=== PATIENT | male | born 1950 ===

== ENCOUNTER 2016-10-05 10:38 | Inpatient (IN) | payer BC, OTHER ==
[2016-10-05 10:43] VITALS: BMI 24.7
[2016-10-05 11:03] LABS: BASO # 0.04 K/mm3 (0.0-2.0); BASO % 0.4 % (0.0-3.0); EOS # 0.1 (0.0-0.7); GRAN # 4.58 (1.4-6.5); GRAN % 43.6 % (50.0-68.0); HEMOGLOBIN 15.5 gm/dL (14.0-18.0); LYMPH % 47.3 % (22.0-35.0); MEAN CELL VOLUME 84.8 fL (80.0-105.0); MEAN CORPUSCULAR HEMOGLOBIN 29.1 pg (25.0-35.0); MEAN CORPUSCULAR HGB CONC 34.4 g/dl (31.0-37.0); MEAN PLATELET VOLUME 10.7 fl (7.0-11.0); MONO # 0.8 (0.1-0.6); MONO % 7.7 % (1.0-6.0); PLATELET COUNT 152 10^3/uL (120.0-450.0); RBC 5.32 10^6/uL (3.5-6.1); RED CELL DISTRIBUTION WIDTH 14.4 % (11.5-14.5); WHITE BLOOD COUNT 10.5 10^3/ul (4.5-11.0)
--- NOTE | 2016-10-05 11:08 | CT ---
PROCEDURE: CT HEAD WITHOUT CONTRAST. HISTORY: Code Stroke. Altered mental status new line Relevant medical history: Seizure disorder. COMPARISON: None available. TECHNIQUE: Axial computed tomography images were obtained through the head/brain without intravenous contrast. Radiation dose: Total exam DLP = 774.23 mGy-cm. This CT exam was performed using one or more of the following dose reduction techniques: Automated exposure control, adjustment of the mA and/or kV according to patient size, and/or use of iterative reconstruction technique. FINDINGS: HEMORRHAGE: No intracranial hemorrhage. BRAIN: No mass effect or edema. Cortical atrophy, periventricular small vessel disease VENTRICLES: Unremarkable. No hydrocephalus. CALVARIUM: Unremarkable. PARANASAL SINUSES: Unremarkable as visualized. No significant inflammatory changes. MASTOID AIR CELLS: Unremarkable as visualized. No inflammatory changes. OTHER FINDINGS: None. IMPRESSION: No acute intracranial abnormalities. No significant findings to account for the clinical presentation. Code stroke protocol: Study completed 11:49. Radiologist notified 11:02. Results conveyed verbally at 11:05. Interpretation finalized and available for review 11:07. October 05, 2016.
[2016-10-05 11:09] LABS: INR 1.09 (0.93-1.08); PARTIAL THROMBOPLASTIN TIME 23.6 Seconds (23.7-30.8); PROTHROMBIN TIME 11.8 Seconds (9.9-11.8)
--- NOTE | 2016-10-05 11:20 | RAD ---
PROCEDURE: CHEST RADIOGRAPH, 1 VIEW HISTORY: CVA alert COMPARISON: None available. FINDINGS: LUNGS: Clear. PLEURA: No pneumothorax or pleural fluid seen. CARDIOVASCULAR: No radiographic findings to suggest acute or significant cardiovascular disease. OSSEOUS STRUCTURES: No significant abnormalities. VISUALIZED UPPER ABDOMEN: Normal. OTHER FINDINGS: None. IMPRESSION: No active disease.
[2016-10-05 11:29] LABS: ALB/GLOB RATIO 1.2 (1.1-1.8); ALBUMIN 4.5 g/dL (3.0-4.8); ALT/SGPT 32 U/L (7-56); AST/SGOT 37 U/L (15-59); BLOOD UREA NITROGEN 15 mg/dL (7-21); CALCIUM 9.3 mg/dL (8.4-10.5); GFR AFRICAN-AMERICAN > 60; GFR NON-AFRICAN AMERICAN > 60; HDL CHOLESTEROL 54 mg/dL (29-60)
[2016-10-05 11:40] LABS: LDL CHOLESTEROL 169 mg/dL (0-129)
[2016-10-05 11:44] LABS: TROPONIN I < 0.01 ng/mL
[2016-10-05] MEDS ORDERED: Gadodiamide 287 MG/ML VIAL (15ML) IV ONE (12:51)
--- NOTE | 2016-10-05 14:00 | MRI ---
EXAM: MR Head Without and With Intravenous Contrast CLINICAL HISTORY: 66 years old, male; Signs and symptoms; Altered mental status/memory loss; Additional info: CVA TECHNIQUE: Magnetic resonance images of the head/brain without and with intravenous contrast in multiple planes. CONTRAST: 15 mL of omniscan administered intravenously. COMPARISON: CT - HEAD W/O (CODE STROKE) 10/05/2016 10:48:07 AM FINDINGS: Brain: There are several punctate foci of high signal abnormality in the right cerebral hemisphere and a single punctate focus of high signal abnormality in the left cerebral hemisphere, seen on the diffusion images, and consistent with small acute infarcts. The appearance is most consistent with small embolic infarcts. There is moderate high signal abnormality in the periventricular white matter and centrum semiovale, best seen on the flair images. These changes are nonspecific but likely represent chronic small vessel ischemic change. There are chronic lacunar infarcts. There is moderate cerebral atrophy. No hemorrhage. Brainstem: There are chronic brainstem ischemic changes. Ventricles: Unremarkable. No ventriculomegaly. Bones/joints: Unremarkable. Sinuses: Unremarkable as visualized. No acute sinusitis. Mastoid air cells: There is mild bilateral mastoid disease. Orbits: Unremarkable as visualized. Vertebral arteries: The patient is left vertebral artery dominant. IMPRESSION: 1. There are several punctate foci of high signal abnormality in the right cerebral hemisphere and a single punctate focus of high signal abnormality in the left cerebral hemisphere, seen on the diffusion images, and consistent with small acute infarcts. The appearance is most consistent with small embolic infarcts. 2. There is moderate high signal abnormality in the periventricular white matter and centrum semiovale, best seen on the flair images. These changes are nonspecific but likely represent chronic small vessel ischemic change. 3. There are chronic lacunar infarcts. 4. There are chronic brainstem ischemic changes. 5. There is moderate cerebral atrophy.
--- NOTE | 2016-10-05 20:15 | MRI ---
EXAM: MR Angiography Neck Without Intravenous Contrast CLINICAL HISTORY: 66 years old, male; Signs and symptoms; Cognitive deficit and dizziness and giddiness; Altered mental status; Additional info: TIA TECHNIQUE: Magnetic resonance angiography images of the neck without intravenous contrast. COMPARISON: No relevant prior studies available. FINDINGS: Right common carotid artery: Unremarkable. No significant stenosis. No dissection or occlusion. Right internal carotid artery: Unremarkable. Extracranial segment is patent with no significant stenosis. No dissection or occlusion. Right external carotid artery: Unremarkable. No occlusion. Right vertebral artery: Unremarkable. No significant stenosis. No dissection or occlusion. Left common carotid artery: Unremarkable. No significant stenosis. No dissection or occlusion. Left internal carotid artery: Unremarkable. Extracranial segment is patent with no significant stenosis. No dissection or occlusion. Left external carotid artery: Unremarkable. No occlusion. Left vertebral artery: The patient is left vertebral artery dominant. No significant stenosis. No dissection or occlusion. Soft tissues: Unremarkable as visualized. CAROTID STENOSIS REFERENCE USING NASCET CRITERIA: % ICA stenosis = (1 - narrowest ICA diameter/diameter of distal cervical ICA) x 100. Mild - <50% stenosis. Moderate - 50-69% stenosis. Severe - 70-94% stenosis. Near occlusion - 95-99% stenosis. Occluded - 100% stenosis. IMPRESSION: No acute findings.
[2016-10-05] MEDS ORDERED: Morphine 2 mg/ml ISec IVP ONE (20:56)
[2016-10-06 07:20] LABS: HEMOGLOBIN 15.4 gm/dL (14.0-18.0); MEAN CELL VOLUME 83.1 fL (80.0-105.0); MEAN CORPUSCULAR HEMOGLOBIN 29.2 pg (25.0-35.0); MEAN CORPUSCULAR HGB CONC 35.2 g/dl (31.0-37.0); MEAN PLATELET VOLUME 10.4 fl (7.0-11.0); RBC 5.27 10^6/uL (3.5-6.1); RED CELL DISTRIBUTION WIDTH 14.5 % (11.5-14.5); WHITE BLOOD COUNT 7.2 10^3/ul (4.5-11.0)
[2016-10-06 07:45] LABS: ALB/GLOB RATIO 1.2 (1.1-1.8); ALBUMIN 4.4 g/dL (3.0-4.8); ALT/SGPT 31 U/L (7-56); AST/SGOT 45 U/L (15-59); BLOOD UREA NITROGEN 15 mg/dL (7-21); GFR AFRICAN-AMERICAN > 60; GFR NON-AFRICAN AMERICAN > 60
[2016-10-06] MEDS ORDERED: Gadodiamide 287 MG/ML VIAL (15ML) IV ONE (10:50)
--- NOTE | 2016-10-06 11:25 | CARD ---
APPROVED REPORT EKG Measurement Heart [id number] <Conclusion> Sinus tachycardia with premature atrial complexes with aberrant conduction Possible Left atrial enlargement Nonspecific ST abnormality Abnormal ECG
[2016-10-06] MEDS: Enoxaparin 40 mg Syringe SC SCH (11:41)
--- NOTE | 2016-10-06 11:48 | MRI ---
PROCEDURE: Magnetic Resonance Angiography Brain HISTORY: TIA COMPARISON: None available. TECHNIQUE: 3D time of flight MR angiography of the intracranial arteries was performed. Rotating maximum intensity projection images were generated. Examination is significantly limited by patient motion. FINDINGS: INTERNAL CEREBRAL ARTERIES: Normal flow related signal. The skull base, petrous, cavernous and supraclinoid segments are bilaterally widely patient. ANTERIOR CEREBRAL ARTERIES: Limited evaluation. A1 and A2 segments appear patent. Smaller distal branches unremarkable, as visualized. MIDDLE CEREBRAL ARTERIES: Limited evaluation. M1 and M2 segments are not well visualized. POSTERIOR CIRCULATION: Basilar Artery: Patent. Distal Vertebral Arteries: Absent flow related signal in the right vertebral artery. The left vertebral artery is patent. Posterior Cerebral Arteries: Absent flow related signal in the left [employer]. The right [employer] is diminutive. Posterior Inferior Cerebellar Arteries: Unremarkable. ANEURYSM/ VASCULAR MALFORMATIONS: None. OTHER FINDINGS: None. IMPRESSION: Suboptimal diagnostic quality due to motion degraded images. Repeat examination is recommended. Allowing for this, question of intracranial stenosis in the middle cerebral and posterior cerebral arteries. Nonvisualization of the right vertebral artery could be related to proximal occlusion or severe intracranial atherosclerosis. A preliminary report was provided by [facility].
--- NOTE | 2016-10-06 11:49 | MRI ---
PROCEDURE: MRI BRAIN WITH AND WITHOUT CONTRAST HISTORY: stroke code - follow up to CT COMPARISON: MRI brain without and with intravenous do contrast from 10/05/2016 TECHNIQUE: Multiplanar, multisequence MR images of the brain were obtained with and without intravenous contrast enhancement. FINDINGS: HEMORRHAGE: None DWI: There are several foci of restricted diffusion in the right frontal and parietal cortex and in the left frontal cortex. There is a punctate focus of retreated diffusion in the left external capsule. BRAIN PARENCHYMA: There are severe chronic microangiopathic changes. There are old lacunar infarctions in bilateral basal ganglia. There is no mass, mass effect or abnormal extra-axial fluid collection. The midline sagittal structures are normal. ENHANCEMENT: No abnormal parenchymal or leptomeningeal enhancement. VENTRICLES: There is moderate age-related global parenchymal volume loss and proportionate enlargement of the ventricles and cortical sulci appear. CRANIUM: There is normal bone marrow signal pattern. ORBITS: Grossly unremarkable. PARANASAL SINUSES/MASTOIDS: Predominantly clear VASCULAR SYSTEM: There are normal signal voids in the larger intracranial arteries. OTHER FINDINGS: None . IMPRESSION: 1. Small infarctions in the right frontal and parietal cortex, left frontal cortex and left external capsule consistent with embolic etiology. 2. Severe chronic microangiopathic changes and moderate age-related global parenchymal volume loss. 3. Old lacunar infarctions in bilateral basal ganglia. The
--- NOTE | 2016-10-06 17:21 | CP.PCM.PN ---
Subjective - Date & Time of Evaluation Date of Evaluation: 10/06/16 Time of Evaluation: 17:20 - Subjective Subjective: Medicine progress note. Attending: Dr. Ortiz Pt seen and examined at bedside. No acute distress. No events overnight. No fevers, chills, vomiting, diarrhea. Objective - Vital Signs/Intake and Output Vital Signs (last 24 hours): Temp Pulse Resp BP Pulse Ox 98 F 75 20 180/82 H 96 10/06/16 12:00 10/06/16 12:00 10/06/16 12:00 10/06/16 12:00 10/05/16 11:12 Intake and Output: 10/06/16 10/06/16 06:59 18:59 Intake Total 0 Output Total 600 Balance -600 - Medications Medications: Current Medications Acetaminophen (Tylenol 325mg Tab) 650 mg PO Q4H PRN PRN Reason: Pain, moderate (4-7) Aspirin (Aspirin) 325 mg PO DAILY [facility] Last Admin: 10/06/16 11:40 Dose: 325 mg Atorvastatin Calcium (Lipitor) 40 mg PO HS [facility] Enoxaparin Sodium (Lovenox) 40 mg SC DAILY [facility] PRN Reason: Protocol Last Admin: 10/06/16 11:41 Dose: 40 mg Hydralazine HCl (Apresoline) 10 mg IVP Q6 PRN PRN Reason: SBP > 200 Last Admin: 10/05/16 23:21 Dose: 10 mg Lisinopril (Zestril) 10 mg PO DAILY [facility] Last Admin: 10/06/16 11:42 Dose: 10 mg - Labs Labs: 10/06/16 07:10 10/06/16 07:10 PT 11.8 Seconds (9.9-11.8) 10/05/16 10:45 INR 1.09 (0.93-1.08) H 10/05/16 10:45 APTT 23.6 Seconds (23.7-30.8) L 10/05/16 10:45 - Constitutional Appears: Non-toxic, No Acute Distress - Head Exam Head Exam: ATRAUMATIC, NORMAL INSPECTION, NORMOCEPHALIC - Eye Exam Eye Exam: EOMI - ENT Exam ENT Exam: Mucous Membranes Moist - Respiratory Exam Respiratory Exam: absent: Respiratory Distress - Cardiovascular Exam Cardiovascular Exam: +S1, +S2 - GI/Abdominal Exam GI & Abdominal Exam: Soft, Normal Bowel Sounds. absent: Tenderness - Extremities Exam Extremities Exam: Full ROM, Normal Inspection - Neurological Exam Neurological Exam: Alert, Awake, Oriented x3 - Psychiatric Exam Psychiatric exam: Normal Affect, Normal Mood - Skin Skin Exam: Dry, Intact, Normal Color, Warm Assessment and Plan - Assessment and Plan (Free Text) Assessment: This is a 66 yo male with past medical hx of htn and hld presenting with cc of found unresponsive and found to have multiple infarcts on imaging 1. Stroke -neuro consult. recs appreciated -continue asa -continue plavix -follow up CTA -f/u echo -pt /ot -IVF 2. hx of htn -continue hydralazine -continue lisinopril 3. hx of hld -continue lipitor 4. gi/dvt ppx -scds -protonix dw Dr. Ortiz
--- NOTE | 2016-10-06 17:45 | CP.PCM.CON ---
History of Present Illness - History of Present Illness History of Present Illness: Mr. Waldrop is a 66-year-old man with a past medical history of dyslipidemia, hypertension who was found down and was unresponsive. He was brought to the ED , and the last time he was seen normal was unclear. Initially, he was completely unresponsive, but he began following commands and moving all extremities. CT of the head did not show any acute changes. MRI of the brain showed several small punctate infarcts in both hemispheres located in watershed regions. He had significant T2 hyperintensities consistent with chronic ischemic changes. He was hypertensive with an SBP of 180's mm Hg. Today, he is much improved and is alert, oriented and seems to be near baseline. He had no complaints. 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) - PSYCHIATRIC Hx Substance Use: No (aphasic) - SURGICAL HISTORY Hx Surgeries: No (pt aphasic) Meds Allergies/Adverse Reactions: Allergies Allergy/AdvReac Type Severity Reaction Status Date / Time No Known Allergies Allergy Verified 10/05/16 22:31 - Medications Medications: Current Medications Acetaminophen (Tylenol 325mg Tab) 650 mg PO Q4H PRN PRN Reason: Pain, moderate (4-7) Atorvastatin Calcium (Lipitor) 40 mg PO HS [facility] Clopidogrel Bisulfate (Plavix) 75 mg PO DAILY [facility] Enoxaparin Sodium (Lovenox) 40 mg SC DAILY [facility] PRN Reason: Protocol Last Admin: 10/06/16 11:41 Dose: 40 mg Hydralazine HCl (Apresoline) 10 mg IVP Q6 PRN PRN Reason: SBP > 200 Last Admin: 10/05/16 23:21 Dose: 10 mg Lisinopril (Zestril) 10 mg PO DAILY ON LICENSE OF [facility] Last Admin: 10/06/16 11:42 Dose: 10 mg Physical Exam - Constitutional Appears: Well - Head Exam Head Exam: ATRAUMATIC, NORMAL INSPECTION, NORMOCEPHALIC - Eye Exam Eye Exam: EOMI, Normal appearance, PERRL - ENT Exam ENT Exam: Mucous Membranes Moist, Normal Exam - Neck Exam Neck exam: Positive for: Normal Inspection - Respiratory Exam Respiratory Exam: Clear to Auscultation Bilateral, NORMAL BREATHING PATTERN - Cardiovascular Exam Cardiovascular Exam: REGULAR RHYTHM, +S1, +S2 - GI/Abdominal Exam GI & Abdominal Exam: Normal Bowel Sounds, Soft. absent: Tenderness - Rectal Exam Rectal Exam: Deferred - Back Exam Back exam: NORMAL INSPECTION - Neurological Exam Neurological exam: Abnormal Gait, Alert, CN II-XII Intact, Oriented x3, Reflexes Normal - Expanded Neurological Exam Expanded Patient oriented to: person, place, time Cranial nerves: EOM's Intact: Normal, Facial Sensation: Normal, Gag Reflex: Normal Ataxia: No Cerebellar Function: Finger to Nose: Normal Upper motor neuron: Babinski Sign: Abnormal Left, Abnormal Right Sensory exam: Lower Extremity Light Touch: Normal, Lower Extremity Pin Prick: Normal, Upper Extremity Light Touch: Normal, Upper Extremity Pin Prick: Normal Neuro motor strength exam: Left Upper Extremity: 4, Right Upper Extremity: 4, Left Lower Extremity: 4, Right Lower Extremity: 4 DTR: Bicep Left: 3+, Bicep Right: 3+, Patellar Left: 3+, Patellar Right: 3+ - Psychiatric Exam Psychiatric exam: Normal Affect, Normal Mood - Skin Skin Exam: Dry, Intact, Normal Color, Warm Results - Vital Signs Recent Vital Signs: Last Vital Signs Temp 99 F 10/06/16 17:32 Pulse 69 10/06/16 17:32 Resp 20 10/06/16 17:32 BP 175/96 H 10/06/16 17:32 Pulse Ox 96 10/05/16 11:12 - Labs Result Diagrams: 10/06/16 07:10 10/06/16 07:10 Labs: Laboratory Results - last 24 hr 10/06/16 10/06/16 07:10 07:10 WBC 7.2 D RBC 5.27 Hgb 15.4 Hct 43.8 MCV 83.1 MCH 29.2 MCHC 35.2 RDW 14.5 Plt Count 126 MPV 10.4 Sodium 136 Potassium 4.0 Chloride 100 Carbon Dioxide 26 Anion Gap 14 BUN 15 Creatinine 1.1 Est GFR ( Amer) > 60 Est GFR (Non-Af Amer) > 60 Random Glucose 89 Calcium 9.0 Total Bilirubin 1.2 AST 45 ALT 31 Alkaline Phosphatase 66 Total Protein 8.2 Albumin 4.4 Globulin 3.8 Albumin/Globulin Ratio 1.2 - Imaging and Cardiology MRI - head Status: Image reviewed by me, Report reviewed by me (Watershed appearing punctate infarcts and evidence of chronic ischemic changes. ) Assessment & Plan (1) Ischemic stroke Assessment and Plan: Infarcts appear to be either embolic or due to systemic hypotension and watershed compromise. MRA of the head was not good quality. Will order CTA of the head neck. Start Plavix 75 mg in addition to Aspirin 81 mg daily for a total of 21 days, then we will continue aspirin 81 mg indefinitely. Continue Lipitor 40 mg daily. Echocardiogram with bubble study. Check lipid panel, HbA1c, TSH, B12, CRP and ESR. PT/OT eval and treat. May start normalizing BP tomorrow, for now permissive HTN (do not treat SBP < 220/110 mm Hg). Fluids with NS at 100 mL/hr. Thank you. Status: Acute Priority: High
[2016-10-06 20:23] LABS: BARBITURATES, UR NEGATIVE (NEGATIVE); BENZODIAZEPINES, UR NEGATIVE (NEGATIVE); OPIATES, UR POSITIVE (NEGATIVE); PHENCYCLIDINE, UR NEGATIVE (NEGATIVE)
[2016-10-07 07:38] LABS: BASO # 0.01 K/mm3 (0.0-2.0); BASO % 0.2 % (0.0-3.0); EOS # 0.1 (0.0-0.7); EOS % 1.1 % (1.5-5.0); GRAN # 4.61 (1.4-6.5); GRAN % 72.5 % (50.0-68.0); HEMOGLOBIN 15.2 gm/dL (14.0-18.0); LYMPH % 15.3 % (22.0-35.0); MEAN CORPUSCULAR HGB CONC 34.5 g/dl (31.0-37.0); MEAN PLATELET VOLUME 10.2 fl (7.0-11.0); MONO # 0.7 (0.1-0.6); MONO % 10.9 % (1.0-6.0); PLATELET COUNT 122 10^3/uL (120.0-450.0); RBC 5.25 10^6/uL (3.5-6.1); RED CELL DISTRIBUTION WIDTH 14.6 % (11.5-14.5); WHITE BLOOD COUNT 6.4 10^3/ul (4.5-11.0)
[2016-10-07 08:04] LABS: ALB/GLOB RATIO 1.2 (1.1-1.8); ALBUMIN 4.1 g/dL (3.0-4.8); ALT/SGPT 34 U/L (7-56); AST/SGOT 43 U/L (15-59); BLOOD UREA NITROGEN 16 mg/dL (7-21); CALCIUM 9.2 mg/dL (8.4-10.5); GFR AFRICAN-AMERICAN > 60; GFR NON-AFRICAN AMERICAN 55; MAGNESIUM 2.2 mg/dL (1.7-2.2)
--- NOTE | 2016-10-07 08:55 | CT ---
PROCEDURE: CT Angiography of the Brain. HISTORY: Stroke COMPARISON: None available. TECHNIQUE: CT angiography of the intracranial arteries was performed. Coronal and sagittal maximum intensity projection reformated images were generated. This CT exam was performed using one or more of the following dose reduction techniques: Automated exposure control, adjustment of the mA and/or kV according to patient size, and/or use of iterative reconstruction technique. FINDINGS: INTERNAL CEREBRAL ARTERIES: Unremarkable. The skull base, petrous, cavernous and supraclinoid segments are bilaterally widely patient. ANTERIOR CEREBRAL ARTERIES: Unremarkable. A1 and A2 segments are widely patent. Smaller distal branches unremarkable, as visualized. MIDDLE CEREBRAL ARTERIES: Unremarkable. M1 and M2 segments are widely patent. Perisylvian branches grossly symmetric. POSTERIOR CIRCULATION: Basilar Artery: Unremarkable. Distal Vertebral Arteries: Unremarkable. Posterior Cerebral Arteries: Unremarkable. Posterior Inferior Cerebellar Arteries: Unremarkable. ANEURYSM/ VASCULAR MALFORMATIONS: None. OTHER FINDINGS: None. IMPRESSION: Unremarkable CT Angiography of the Brain.
--- NOTE | 2016-10-07 09:22 | CT ---
PROCEDURE: CT Angiography of the neck with contrast HISTORY: Stroke COMPARISON: None available. TECHNIQUE: Contiguous axial images of the neck were obtained from the level of the skull-base to the superior mediastinum in the arteriographic phase of enhancement. Coronal and sagittal reformats or also generated. IV contrast dose: 150 cc of Omnipaque 350 Radiation Dose - DLP: 537 mGy-cm This CT exam was performed using one or more of the following dose reduction techniques: Automated exposure control, adjustment of the mA and/or kV according to patient size, and/or use of iterative reconstruction technique. FINDINGS: RIGHT CAROTID ARTERIES: Common Carotid Artery: Normal. Carotid Bifurcation: Normal. Internal Carotid Artery:Normal. External Carotid Artery (proximal branches): Normal. LEFT CAROTID ARTERIES: Common Carotid Artery: Normal. Carotid Bifurcation: Normal. Internal Carotid Artery:There is a calcified plaque in the proximal internal carotid producing approximately 50 percent stenosis External Carotid Artery (proximal branches): Normal. VERTEBRAL ARTERIES: Right Vertebral Artery: The right vertebral is diffusely small in size. Left Vertebral Artery: Approximately 50 percent stenosis of the origin of the left vertebral artery which is seen on image 53 of series 604. The left vertebral is much larger than the right OTHER FINDINGS: None. IMPRESSION: Calcified plaque in the proximal left internal carotid with approximately 50 percent stenosis. Large dominant left vertebral artery with a 50 percent stenosis at its origin. Small thin right vertebral artery
[2016-10-07] MEDS: Enoxaparin 40 mg Syringe SC SCH (10:07)
--- NOTE | 2016-10-07 11:46 | CARD ---
APPROVED REPORT EXAM: Two-dimensional and M-mode echocardiogram with Doppler and color Doppler. INDICATION CVA/TIA 2D DIMENSIONS Left Atrium (2D)2.9 (1.6-4.0cm)IVSd1.4 (0.7-1.1cm) LVDd4.3 (3.9-5.9cm)PWd1.2 (0.7-1.1cm) LVDs2.9 (2.5-4.0cm)FS (%) 31.5 % LVEF (%)59.7 (>50%) M-Mode DIMENSIONS Aortic Root2.30 (2.2-3.7cm)Aortic Cusp Exc.1.50 (1.5-2.0cm) Aortic Valve AoV Peak [id number]/Wendy Peak GR.10mmHg Mitral Valve E/A ratio0.0 TDI E/Lateral E'0.0E/Medial E'0.0 Tricuspid Valve TR Peak [id number] [id number] Peak Gr.14mmHg [id number] LEFT VENTRICLE The left ventricle is normal size. There is mild concentric left ventricular hypertrophy. The left ventricular function is normal. The left ventricular ejection fraction is within the normal range. There is normal LV segmental wall motion. RIGHT VENTRICLE The right ventricle is normal size. The right ventricular systolic function is normal. ATRIA The left atrium size is normal. The right atrium size is normal. The interatrial septum is intact with no evidence for an atrial septal defect. AORTIC VALVE The aortic valve is mildly sclerotic. No aortic regurgitation is present. There is no aortic valvular stenosis. MITRAL VALVE The mitral valve is normal in structure. There is no mitral valve regurgitation noted. TRICUSPID VALVE The tricuspid valve is normal in structure. There is mild tricuspid regurgitation. PULMONIC VALVE The pulmonary valve is normal in structure. GREAT VESSELS The aortic root is normal in size. The IVC is normal in size and collapses >50% with inspiration. PERICARDIAL EFFUSION There is no pleural effusion. There is no pericardial effusion. <Conclusion> Normal chamber size. Mild concentric LVH. Normal LV systolic function. Mild TR. No obvious cardiac source of embolus seen, but if clinical suspicion is high, consider DAHLIA imaging.
--- NOTE | 2016-10-07 13:37 | CP.PCM.DIS ---
<Sweta Garcia - Last Filed: 10/07/16 14:03> Provider - Provider Date of Admission: 10/05/16 13:50 Attending physician: Nabil Ortiz MD Primary care physician: VIJAY Outpatient Consults: Neuro - ( Time Spent in preparation of Discharge (in minutes): 35 Hospital Course - Lab Results Lab Results: Most Recent Lab Values WBC 6.4 10^3/ul (4.5-11.0) 10/07/16 07:15 RBC 5.25 10^6/uL (3.5-6.1) 10/07/16 07:15 Hgb 15.2 gm/dL (14.0-18.0) 10/07/16 07:15 Hct 44.1 % (42.0-52.0) 10/07/16 07:15 MCV 84.0 fL (80.0-105.0) 10/07/16 07:15 MCH 29.0 pg (25.0-35.0) 10/07/16 07:15 MCHC 34.5 g/dl (31.0-37.0) 10/07/16 07:15 RDW 14.6 % (11.5-14.5) H 10/07/16 07:15 Plt Count 122 10^3/uL (120.0-450.0) 10/07/16 07:15 MPV 10.2 fl (7.0-11.0) 10/07/16 07:15 Gran % 72.5 % (50.0-68.0) H 10/07/16 07:15 Lymph % (Auto) 15.3 % (22.0-35.0) L 10/07/16 07:15 Dawson % (Auto) 10.9 % (1.0-6.0) H 10/07/16 07:15 Eos % (Auto) 1.1 % (1.5-5.0) L 10/07/16 07:15 Baso % (Auto) 0.2 % (0.0-3.0) 10/07/16 07:15 Gran # 4.61 (1.4-6.5) 10/07/16 07:15 Lymph # 1.0 (1.2-3.4) L 10/07/16 07:15 Dawson # 0.7 (0.1-0.6) H 10/07/16 07:15 Eos # 0.1 (0.0-0.7) 10/07/16 07:15 Baso # 0.01 K/mm3 (0.0-2.0) 10/07/16 07:15 PT 11.8 Seconds (9.9-11.8) 10/05/16 10:45 INR 1.09 (0.93-1.08) H 10/05/16 10:45 APTT 23.6 Seconds (23.7-30.8) L 10/05/16 10:45 Sodium 139 mmol/L (132-148) 10/07/16 07:15 Potassium 4.0 mmol/L (3.6-5.0) 10/07/16 07:15 Chloride 100 mmol/L (95-110) 10/07/16 07:15 Carbon Dioxide 26 mmol/L (21-33) 10/07/16 07:15 Anion Gap 17 (10-20) 10/07/16 07:15 BUN 16 mg/dL (7-21) 10/07/16 07:15 Creatinine 1.3 mg/dL (0.5-1.4) 10/07/16 07:15 Est GFR ( Amer) > 60 10/07/16 07:15 Est GFR (Non-Af Amer) 55 10/07/16 07:15 POC Glucose (mg/dL) 259 mg/dL (65-110) H 10/05/16 10:44 Random Glucose 87 mg/dL (70-110) 10/07/16 07:15 Hemoglobin A1c 5.4 % (4.2-6.5) 10/05/16 10:45 Calcium 9.2 mg/dL (8.4-10.5) 10/07/16 07:15 Phosphorus 3.7 mg/dL (2.5-4.5) 10/07/16 07:15 Magnesium 2.2 mg/dL (1.7-2.2) 10/07/16 07:15 Total Bilirubin 1.1 mg/dL (0.2-1.3) 10/07/16 07:15 AST 43 U/L (15-59) 10/07/16 07:15 ALT 34 U/L (7-56) 10/07/16 07:15 Alkaline Phosphatase 62 U/L (38-133) 10/07/16 07:15 Troponin I < 0.01 ng/mL 10/05/16 11:00 Total Protein 7.6 g/dL (5.8-8.3) 10/07/16 07:15 Albumin 4.1 g/dL (3.0-4.8) 10/07/16 07:15 Globulin 3.5 gm/dL 10/07/16 07:15 Albumin/Globulin Ratio 1.2 (1.1-1.8) 10/07/16 07:15 Triglycerides 146 mg/dL (35-160) 10/05/16 11:00 Cholesterol 242 mg/dL (130-200) H 10/05/16 11:00 LDL Cholesterol Direct 169 mg/dL (0-129) H 10/05/16 11:00 HDL Cholesterol 54 mg/dL (29-60) 10/05/16 11:00 Urine Opiates Screen Positive (NEGATIVE) H 10/06/16 19:30 Urine Methadone Screen Negative (NEGATIVE) 10/06/16 19:30 Ur Barbiturates Screen Negative (NEGATIVE) 10/06/16 19:30 Ur Phencyclidine Scrn Negative (NEGATIVE) 10/06/16 19:30 Ur Amphetamines Screen Negative (NEGATIVE) 10/06/16 19:30 U Benzodiazepines Scrn Negative (NEGATIVE) 10/06/16 19:30 U Oth Cocaine Metabols Negative (NEGATIVE) 10/06/16 19:30 U Cannabinoids Screen Negative (NEGATIVE) 10/06/16 19:30 Blood Type O POSITIVE 10/05/16 11:00 Blood Type Confirm O POSITIVE 10/05/16 11:40 Antibody Screen Negative 10/05/16 11:00 BBK History Checked No verified bt 10/05/16 11:00 - Hospital Course Hospital Course: PMD: [facility] Outpatient Consults: Dr. Rushing (Neuro) Diagnoses: CVA, Syncope Hospital Course: Mr. Waldrop is a 66 year old man with PMH of HTN and Dyslipidemia, medication non-compliance who was found down and was unresponsive on 10/05/16. Patient was initially unresponsive with a SBP in the 190's, but later began following commands and moving all extremities. Neurology was consulted and Brain Imaging was ordered. As per neuro patient was started on plavix 75 mg in addition to his 81mg dailly Aspirin for 21 days based on his MRI findings shown below. Medications reviewed with Yi Speaking casework manager and patient at bedside. Patient agrees with plan; and will follow up with [facility] Outpatient in 1 week. Studies for this visit are as follows: MRI: several small punctate infarcts in both hemispheres located in watershed regions. Significant T2 hyperintesities consistent with chronic ischemic changes. Head CT: No Acute Changes Neck CT: 50% stenosis of internal Carotid Echo: EF - 60% - No obvious source of embolism Discharge Exam - Head Exam Head Exam: ATRAUMATIC, NORMAL INSPECTION, NORMOCEPHALIC - Eye Exam Eye Exam: Normal appearance, PERRL Pupil Exam: NORMAL ACCOMODATION - ENT Exam ENT Exam: Mucous Membranes Moist, Normal Exam - Respiratory Exam Respiratory Exam: absent: Rales, Rhonchi, Wheezes - Cardiovascular Exam Cardiovascular Exam: REGULAR RHYTHM, +S1, +S2. absent: JVD - GI/Abdominal Exam GI & Abdominal Exam: Normal Bowel Sounds. absent: Hyperactive Bowel Sounds - Extremities Exam Extremities exam: normal inspection Additional comments: Patient missing digits 1-5 on Right Upper Extremity - Neurological Exam Neurological exam: Alert, CN II-XII Intact Additional comments: NO Neuro Deficits seen - Psychiatric Exam Psychiatric exam: Normal Affect - Skin Skin Exam: Intact, Normal Color, Warm Discharge Plan - Follow Up Plan Condition: GOOD Additional Instructions: 1. Take each medication daily. 2. Follow up with [facility] Clinic in 1 week. Referrals: [facility] at [facility] [Outside] <Diana BURROUGHS,Nabil - Last Filed: 10/07/16 14:43> Provider - Provider Date of Admission: 10/07/16 14:29 Attending physician: Nabil Ortiz MD Hospital Course - Lab Results Lab Results: Most Recent Lab Values WBC 6.4 10^3/ul (4.5-11.0) 10/07/16 07:15 RBC 5.25 10^6/uL (3.5-6.1) 10/07/16 07:15 Hgb 15.2 gm/dL (14.0-18.0) 10/07/16 07:15 Hct 44.1 % (42.0-52.0) 10/07/16 07:15 MCV 84.0 fL (80.0-105.0) 10/07/16 07:15 MCH 29.0 pg (25.0-35.0) 10/07/16 07:15 MCHC 34.5 g/dl (31.0-37.0) 10/07/16 07:15 RDW 14.6 % (11.5-14.5) H 10/07/16 07:15 Plt Count 122 10^3/uL (120.0-450.0) 10/07/16 07:15 MPV 10.2 fl (7.0-11.0) 10/07/16 07:15 Gran % 72.5 % (50.0-68.0) H 10/07/16 07:15 Lymph % (Auto) 15.3 % (22.0-35.0) L 10/07/16 07:15 Dawson % (Auto) 10.9 % (1.0-6.0) H 10/07/16 07:15 Eos % (Auto) 1.1 % (1.5-5.0) L 10/07/16 07:15 Baso % (Auto) 0.2 % (0.0-3.0) 10/07/16 07:15 Gran # 4.61 (1.4-6.5) 10/07/16 07:15 Lymph # 1.0 (1.2-3.4) L 10/07/16 07:15 Dawson # 0.7 (0.1-0.6) H 10/07/16 07:15 Eos # 0.1 (0.0-0.7) 10/07/16 07:15 Baso # 0.01 K/mm3 (0.0-2.0) 10/07/16 07:15 PT 11.8 Seconds (9.9-11.8) 10/05/16 10:45 INR 1.09 (0.93-1.08) H 10/05/16 10:45 APTT 23.6 Seconds (23.7-30.8) L 10/05/16 10:45 Sodium 139 mmol/L (132-148) 10/07/16 07:15 Potassium 4.0 mmol/L (3.6-5.0) 10/07/16 07:15 Chloride 100 mmol/L (95-110) 10/07/16 07:15 Carbon Dioxide 26 mmol/L (21-33) 10/07/16 07:15 Anion Gap 17 (10-20) 10/07/16 07:15 BUN 16 mg/dL (7-21) 10/07/16 07:15 Creatinine 1.3 mg/dL (0.5-1.4) 10/07/16 07:15 Est GFR ( Amer) > 60 10/07/16 07:15 Est GFR (Non-Af Amer) 55 10/07/16 07:15 POC Glucose (mg/dL) 259 mg/dL (65-110) H 10/05/16 10:44 Random Glucose 87 mg/dL (70-110) 10/07/16 07:15 Hemoglobin A1c 5.4 % (4.2-6.5) 10/05/16 10:45 Calcium 9.2 mg/dL (8.4-10.5) 10/07/16 07:15 Phosphorus 3.7 mg/dL (2.5-4.5) 10/07/16 07:15 Magnesium 2.2 mg/dL (1.7-2.2) 10/07/16 07:15 Total Bilirubin 1.1 mg/dL (0.2-1.3) 10/07/16 07:15 AST 43 U/L (15-59) 10/07/16 07:15 ALT 34 U/L (7-56) 10/07/16 07:15 Alkaline Phosphatase 62 U/L (38-133) 10/07/16 07:15 Troponin I < 0.01 ng/mL 10/05/16 11:00 Total Protein 7.6 g/dL (5.8-8.3) 10/07/16 07:15 Albumin 4.1 g/dL (3.0-4.8) 10/07/16 07:15 Globulin 3.5 gm/dL 10/07/16 07:15 Albumin/Globulin Ratio 1.2 (1.1-1.8) 10/07/16 07:15 Triglycerides 146 mg/dL (35-160) 10/05/16 11:00 Cholesterol 242 mg/dL (130-200) H 10/05/16 11:00 LDL Cholesterol Direct 169 mg/dL (0-129) H 10/05/16 11:00 HDL Cholesterol 54 mg/dL (29-60) 10/05/16 11:00 Urine Opiates Screen Positive (NEGATIVE) H 10/06/16 19:30 Urine Methadone Screen Negative (NEGATIVE) 10/06/16 19:30 Ur Barbiturates Screen Negative (NEGATIVE) 10/06/16 19:30 Ur Phencyclidine Scrn Negative (NEGATIVE) 10/06/16 19:30 Ur Amphetamines Screen Negative (NEGATIVE) 10/06/16 19:30 U Benzodiazepines Scrn Negative (NEGATIVE) 10/06/16 19:30 U Oth Cocaine Metabols Negative (NEGATIVE) 10/06/16 19:30 U Cannabinoids Screen Negative (NEGATIVE) 10/06/16 19:30 Blood Type O POSITIVE 10/05/16 11:00 Blood Type Confirm O POSITIVE 10/05/16 11:40 Antibody Screen Negative 10/05/16 11:00 BBK History Checked No verified bt 10/05/16 11:00 Attending/Attestation - Attestation I have personally seen and examined this patient.: Yes I have fully participated in the care of the patient.: Yes I have reviewed all pertinent clinical information, including history, physical exam and plan: Yes Notes (Text): 10/07/16 14:38 Patient was seen and examined with electromedical equipment repairer . 66 Yrs old male with PMH of CVA,HTN,Chronic smoking non compliance with medication was admitted with change of mental status, unresponsiveness, was hypertensive in ER, he was aphasic, stroke code was called in, work up reveals watershed appearing punctate infarcts and evidence of chronic ischemic changes, urine toxicology was positive for opiate.Patient symptoms has imroved.There is no focal deficit.He will be on dual anti platelet therapy for 3 weeks followed by Aspirin.He is also on statin and has been started on Lisinopril. Physical therapy evaluated the patient and felt that he is unsteady and not safe to go home, We will hold discharge for safety reason. Management plan was discussed in detail with patient Education was provided.
[2016-10-08 06:20] LABS: HEMOGLOBIN 15.7 gm/dL (14.0-18.0); MEAN CELL VOLUME 83.8 fL (80.0-105.0); MEAN CORPUSCULAR HEMOGLOBIN 29.3 pg (25.0-35.0); MEAN PLATELET VOLUME 10.3 fl (7.0-11.0); RBC 5.36 10^6/uL (3.5-6.1); RED CELL DISTRIBUTION WIDTH 14.6 % (11.5-14.5); WHITE BLOOD COUNT 6.4 10^3/ul (4.5-11.0)
[2016-10-08 06:38] LABS: ALB/GLOB RATIO 1.1 (1.1-1.8); ALBUMIN 4.1 g/dL (3.0-4.8); ALT/SGPT 40 U/L (7-56); AST/SGOT 44 U/L (15-59); BLOOD UREA NITROGEN 17 mg/dL (7-21); CALCIUM 8.8 mg/dL (8.4-10.5); GFR AFRICAN-AMERICAN > 60; GFR NON-AFRICAN AMERICAN > 60
[2016-10-08] MEDS: Enoxaparin 40 mg Syringe SC SCH (09:45)
--- NOTE | 2016-10-08 12:57 | CP.PCM.PN ---
<Sweta Garcia - Last Filed: 10/08/16 14:38> Subjective - Date & Time of Evaluation Date of Evaluation: 10/08/16 Time of Evaluation: 07:30 - Subjective Subjective: Patient has been seen and examined. There were no overnight events. Patient Denies any SOB, palpitations, Abdominal Tenderness, urinary/bowel dysfunction, or any weakness. Note: ENTRY LEVEL ACCOUNT EXECUTIVE was called at 12:28 pm for SVT with HR of 205 Objective - Vital Signs/Intake and Output Vital Signs (last 24 hours): Temp Pulse Resp BP Pulse Ox 98.4 F 87 20 180/113 H 98 10/08/16 05:45 10/08/16 11:48 10/08/16 05:45 10/08/16 11:48 10/08/16 05:45 Intake and Output: 10/08/16 10/08/16 06:59 18:59 Intake Total 270 Output Total 500 Balance -230 - Medications Medications: Current Medications Acetaminophen (Tylenol 325mg Tab) 650 mg PO Q4H PRN PRN Reason: Pain, moderate (4-7) Aspirin (Ecotrin) 81 mg PO DAILY [facility] Last Admin: 10/08/16 09:45 Dose: 81 mg Atorvastatin Calcium (Lipitor) 40 mg PO HS [facility] Last Admin: 10/07/16 21:34 Dose: 40 mg Clopidogrel Bisulfate (Plavix) 75 mg PO DAILY [facility] Last Admin: 10/08/16 09:45 Dose: 75 mg Enoxaparin Sodium (Lovenox) 40 mg SC DAILY [facility] PRN Reason: Protocol Last Admin: 10/08/16 09:45 Dose: 40 mg Hydralazine HCl (Apresoline) 10 mg IVP Q6 PRN PRN Reason: Systolic Blood Pressure Last Admin: 10/08/16 11:48 Dose: 10 mg Lisinopril (Zestril) 20 mg PO DAILY [facility] Last Admin: 10/08/16 09:46 Dose: 20 mg - Labs Labs: 10/08/16 05:20 10/08/16 05:20 PT 11.8 Seconds (9.9-11.8) 10/05/16 10:45 INR 1.09 (0.93-1.08) H 10/05/16 10:45 APTT 23.6 Seconds (23.7-30.8) L 10/05/16 10:45 - Constitutional Appears: Well, Non-toxic - Head Exam Head Exam: ATRAUMATIC, NORMOCEPHALIC - Eye Exam Eye Exam: EOMI - Respiratory Exam Respiratory Exam: Clear to Ausculation Bilateral. absent: Rhonchi, Wheezes, Stridor - Cardiovascular Exam Cardiovascular Exam: +S1, +S2. absent: Murmur - GI/Abdominal Exam GI & Abdominal Exam: Soft, Normal Bowel Sounds. absent: Tenderness - Neurological Exam Neurological Exam: Abnormal Gait Additional comments: Due to Weakness - Psychiatric Exam Psychiatric exam: Normal Affect, Normal Mood - Skin Skin Exam: Intact, Normal Color Assessment and Plan - Assessment and Plan (Free Text) Assessment: This is a 66 year old male with a PMH of HTN & HLD who was found unresponsive. MRI showed punctate infarcts in both hemispheres located in watershed region. Rapid Response was called for SVT at 12:28. Plan: 1.CVA Cont. current management of ASA, Plavix, Lovenox. Dysphagia Diet Thank you for Neurology consult. 2.SVT - Carotid Massage and Adenosine given. Converted to tachycardia (105bpm) 3.HTN Cont. current management of Lisinopril, Hydralazine (Q6 PRN) 4.HLD Cont. Current management of Lipitor 5.DVT Proph - SCD's Case seen, reviewed, and discussed with Attending Sweta Garcia PGY 1 - ([phone]) <Myriam Perez B - Last Filed: 10/08/16 15:47> Objective - Vital Signs/Intake and Output Vital Signs (last 24 hours): Temp Pulse Resp BP Pulse Ox 98.8 F 87 19 162/88 H 98 10/08/16 12:00 10/08/16 14:38 10/08/16 12:00 10/08/16 14:38 10/08/16 12:00 Intake and Output: 10/08/16 10/08/16 06:59 18:59 Intake Total 270 Output Total 500 Balance -230 - Medications Medications: Current Medications Acetaminophen (Tylenol 325mg Tab) 650 mg PO Q4H PRN PRN Reason: Pain, moderate (4-7) Aspirin (Ecotrin) 81 mg PO DAILY [facility] Last Admin: 10/08/16 09:45 Dose: 81 mg Atorvastatin Calcium (Lipitor) 40 mg PO HS [facility] Last Admin: 10/07/16 21:34 Dose: 40 mg Clopidogrel Bisulfate (Plavix) 75 mg PO DAILY [facility] Last Admin: 10/08/16 09:45 Dose: 75 mg Enoxaparin Sodium (Lovenox) 40 mg SC DAILY [facility] PRN Reason: Protocol Last Admin: 10/08/16 09:45 Dose: 40 mg Hydralazine HCl (Apresoline) 10 mg IVP Q6 PRN PRN Reason: Systolic Blood Pressure Last Admin: 10/08/16 11:48 Dose: 10 mg Lisinopril (Zestril) 20 mg PO DAILY [facility] Last Admin: 10/08/16 09:46 Dose: 20 mg Metoprolol Tartrate (Lopressor) 50 mg PO BID [facility] - Labs Labs: 10/08/16 05:20 10/08/16 05:20 PT 11.8 Seconds (9.9-11.8) 10/05/16 10:45 INR 1.09 (0.93-1.08) H 10/05/16 10:45 APTT 23.6 Seconds (23.7-30.8) L 10/05/16 10:45 Attending/Attestation - Attestation I have personally seen and examined this patient.: Yes I have fully participated in the care of the patient.: Yes I have reviewed all pertinent clinical information, including history, physical exam and plan: Yes Notes (Text): I have seen and examined the patient at bedside. Agree with the note dictated above with the following additions/ exceptions: Briefly this is 66 year old male with history of hypertension, dyslipidemia, h/o CVA, chronic smoking, non compliance with medications, alcohol abuse who was admitted for evaluation of syncope which was most likely due to ischemic stroke. CT head was normal however MRI brain revealed punctate infarcts in both hemispheres located in watershed region. He was started on aspirin, plavix and lipitor. He was given lisinopril 20 mg as well. Today he had an ENTRY LEVEL ACCOUNT EXECUTIVE where he developed SVT @ 205. Adenosine 6 mg IVP x1 resolved that. Cardiology consult appreciated. Metoprolol was added to control BP. Tobacco and alcohol cessation counselling provided. Outpatient stress test recommended in 6-8 weeks. PT still recommends acute rehab. Will discuss with case briefer tomorrow. Upon discharge patient will follow up in [facility] [place] [place] Myriam Perez
--- NOTE | 2016-10-08 13:02 | CP.PCM.PCO ---
Physician Communication Note - Physician Communication Note Physician Communication Note: See Attached Section for LEVEL VIAL MARKER Note Summary - Summary of Event Summary of Event: LEVEL VIAL MARKER Note Rapid Response called at 12:28pm for 262 Bed 2. Patient is a 66 year old male with a PMH of HTN and HLD. LEVEL VIAL MARKER was called for SVT . On Arrival, patient was Alert and Oriented x 3. Denied complaints of chest pain, palpations, SOB. Vitals were as follows BP 208/116, HR 191, SP02 97% on RA. Gen: AAOx3 Head: Normocephalic, Atraumatic Lungs: CTA Heart: +s1,s2, no murmer. Tachycardic GI: Abd Soft NT, Normoactive Bowel Sounds Psych: Normal Affect A/P 1. SVT (HR 191) - Carotid Massage, 6mg Adenosine. Patient converted from SVT to tachycardia w/ a HR of 105. Stat EKG, and Cardio was consulted.
[2016-10-08] MEDS ORDERED: Potassium Chloride 20 mEq ER Tab PO ONE (13:53)
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
[2016-10-09 06:37] LABS: HEMOGLOBIN 16.4 gm/dL (14.0-18.0); MEAN CELL VOLUME 84.3 fL (80.0-105.0); MEAN CORPUSCULAR HEMOGLOBIN 29.7 pg (25.0-35.0); MEAN CORPUSCULAR HGB CONC 35.2 g/dl (31.0-37.0); MEAN PLATELET VOLUME 9.9 fl (7.0-11.0); RBC 5.53 10^6/uL (3.5-6.1); RED CELL DISTRIBUTION WIDTH 14.5 % (11.5-14.5); WHITE BLOOD COUNT 6.7 10^3/ul (4.5-11.0)
[2016-10-09 06:47] VITALS: O2SAT 99
[2016-10-09 07:14] LABS: ALB/GLOB RATIO 1.1 (1.1-1.8); ALBUMIN 4.1 g/dL (3.0-4.8); ALT/SGPT 44 U/L (7-56); AST/SGOT 48 U/L (15-59); BLOOD UREA NITROGEN 20 mg/dL (7-21); CALCIUM 9.2 mg/dL (8.4-10.5); GFR AFRICAN-AMERICAN > 60; GFR NON-AFRICAN AMERICAN > 60; MAGNESIUM 1.9 mg/dL (1.7-2.2)
--- NOTE | 2016-10-09 08:16 | CARD ---
APPROVED REPORT EKG Measurement Heart [id number] [place] [id number] <Conclusion> Sinus tachycardia Nonspecific ST and T wave abnormality Abnormal ECG
[2016-10-09] MEDS: Enoxaparin 40 mg Syringe SC SCH (09:03)
--- NOTE | 2016-10-09 10:07 | CP.PCM.PN ---
Subjective - Date & Time of Evaluation Date of Evaluation: 10/09/16 Time of Evaluation: 09:00 - Subjective Subjective: Denies Chest Pain, SOB, palpitation Objective - Vital Signs/Intake and Output Vital Signs (last 24 hours): Temp Pulse Resp BP Pulse Ox 98.5 F 88 19 166/92 H 99 10/09/16 06:00 10/09/16 09:50 10/09/16 06:00 10/09/16 09:02 10/09/16 06:00 Intake and Output: 10/09/16 10/09/16 06:59 18:59 Intake Total 0 Output Total 800 Balance -800 - Medications Medications: Current Medications Acetaminophen (Tylenol 325mg Tab) 650 mg PO Q4H PRN PRN Reason: Pain, moderate (4-7) Aspirin (Ecotrin) 81 mg PO DAILY [facility] Last Admin: 10/09/16 09:02 Dose: 81 mg Atorvastatin Calcium (Lipitor) 40 mg PO HS [facility] Last Admin: 10/08/16 22:04 Dose: 40 mg Clopidogrel Bisulfate (Plavix) 75 mg PO DAILY [facility] Last Admin: 10/09/16 09:03 Dose: 75 mg Enoxaparin Sodium (Lovenox) 40 mg SC DAILY [facility] PRN Reason: Protocol Last Admin: 10/09/16 09:03 Dose: 40 mg Hydralazine HCl (Apresoline) 10 mg IVP Q6 PRN PRN Reason: Systolic Blood Pressure Last Admin: 10/09/16 06:14 Dose: 10 mg Lisinopril (Zestril) 20 mg PO DAILY [facility] Last Admin: 10/09/16 09:02 Dose: 20 mg Metoprolol Tartrate (Lopressor) 50 mg PO BID [facility] Last Admin: 10/09/16 09:02 Dose: 50 mg - Labs Labs: 10/09/16 05:30 10/09/16 05:30 PT 11.8 Seconds (9.9-11.8) 10/05/16 10:45 INR 1.09 (0.93-1.08) H 10/05/16 10:45 APTT 23.6 Seconds (23.7-30.8) L 10/05/16 10:45 - Constitutional Appears: Well - Head Exam Head Exam: ATRAUMATIC - Eye Exam Eye Exam: EOMI, PERRL - ENT Exam ENT Exam: Mucous Membranes Moist - Neck Exam Neck Exam: Full ROM - Respiratory Exam Respiratory Exam: Chest Wall Tenderness - Cardiovascular Exam Cardiovascular Exam: REGULAR RHYTHM - Neurological Exam Neuro motor strength exam: Left Upper Extremity: 4, Right Upper Extremity: 5, Left Lower Extremity: 4, Right Lower Extremity: 5 - Skin Skin Exam: Intact Assessment and Plan - Assessment and Plan (Free Text) Assessment: 66 year old male with Hx of Htn , obestity, Hx of CVA in the past admitted with CVA has SVt yesteday now stable T2DM Plan: Continue Beta polo F/u echo continue ASa/ Statin. Thx
[2016-10-09 11:57] VITALS: BP 155/91; RESP 20; TEMP 98.9
--- NOTE | 2016-10-09 13:40 | CP.PCM.DIS ---
<Sweta Garcia - Last Filed: 10/09/16 15:44> Provider - Provider Date of Admission: 10/05/16 14:29 Attending physician: Myriam Perez MD Consults: Cardio - Dr. Cordova Neuro - Dr. Rushing Time Spent in preparation of Discharge (in minutes): 35 Hospital Course - Lab Results Lab Results: Most Recent Lab Values WBC 6.7 10^3/ul (4.5-11.0) 10/09/16 05:30 RBC 5.53 10^6/uL (3.5-6.1) 10/09/16 05:30 Hgb 16.4 gm/dL (14.0-18.0) 10/09/16 05:30 Hct 46.6 % (42.0-52.0) 10/09/16 05:30 MCV 84.3 fL (80.0-105.0) 10/09/16 05:30 MCH 29.7 pg (25.0-35.0) 10/09/16 05:30 MCHC 35.2 g/dl (31.0-37.0) 10/09/16 05:30 RDW 14.5 % (11.5-14.5) 10/09/16 05:30 Plt Count 140 10^3/uL (120.0-450.0) 10/09/16 05:30 MPV 9.9 fl (7.0-11.0) 10/09/16 05:30 Gran % 72.5 % (50.0-68.0) H 10/07/16 07:15 Lymph % (Auto) 15.3 % (22.0-35.0) L 10/07/16 07:15 Navarro % (Auto) 10.9 % (1.0-6.0) H 10/07/16 07:15 Eos % (Auto) 1.1 % (1.5-5.0) L 10/07/16 07:15 Baso % (Auto) 0.2 % (0.0-3.0) 10/07/16 07:15 Gran # 4.61 (1.4-6.5) 10/07/16 07:15 Lymph # 1.0 (1.2-3.4) L 10/07/16 07:15 Navarro # 0.7 (0.1-0.6) H 10/07/16 07:15 Eos # 0.1 (0.0-0.7) 10/07/16 07:15 Baso # 0.01 K/mm3 (0.0-2.0) 10/07/16 07:15 PT 11.8 Seconds (9.9-11.8) 10/05/16 10:45 INR 1.09 (0.93-1.08) H 10/05/16 10:45 APTT 23.6 Seconds (23.7-30.8) L 10/05/16 10:45 Sodium 136 mmol/L (132-148) 10/09/16 05:30 Potassium 4.3 mmol/L (3.6-5.0) 10/09/16 05:30 Chloride 102 mmol/L (98-107) 10/09/16 05:30 Carbon Dioxide 24 mmol/L (21-33) 10/09/16 05:30 Anion Gap 14 (10-20) 10/09/16 05:30 BUN 20 mg/dL (7-21) 10/09/16 05:30 Creatinine 1.1 mg/dL (0.5-1.4) 10/09/16 05:30 Est GFR ( Amer) > 60 10/09/16 05:30 Est GFR (Non-Af Amer) > 60 10/09/16 05:30 POC Glucose (mg/dL) 119 mg/dL (65-110) H 10/09/16 11:49 Random Glucose 82 mg/dL (70-110) 10/09/16 05:30 Hemoglobin A1c 5.4 % (4.2-6.5) 10/05/16 10:45 Calcium 9.2 mg/dL (8.4-10.5) 10/09/16 05:30 Phosphorus 3.7 mg/dL (2.5-4.5) 10/07/16 07:15 Magnesium 1.9 mg/dL (1.7-2.2) 10/09/16 05:30 Total Bilirubin 1.4 mg/dL (0.2-1.3) H 10/09/16 05:30 AST 48 U/L (15-59) 10/09/16 05:30 ALT 44 U/L (7-56) 10/09/16 05:30 Alkaline Phosphatase 67 U/L (38-133) 10/09/16 05:30 Troponin I < 0.01 ng/mL 10/05/16 11:00 Total Protein 8.0 g/dL (5.8-8.3) 10/09/16 05:30 Albumin 4.1 g/dL (3.0-4.8) 10/09/16 05:30 Globulin 3.8 gm/dL 10/09/16 05:30 Albumin/Globulin Ratio 1.1 (1.1-1.8) 10/09/16 05:30 Triglycerides 146 mg/dL (35-160) 10/05/16 11:00 Cholesterol 242 mg/dL (130-200) H 10/05/16 11:00 LDL Cholesterol Direct 169 mg/dL (0-129) H 10/05/16 11:00 HDL Cholesterol 54 mg/dL (29-60) 10/05/16 11:00 TSH 3rd Generation 3.21 mIU/mL (0.46-4.68) 10/09/16 05:30 Urine Opiates Screen Positive (NEGATIVE) H 10/06/16 19:30 Urine Methadone Screen Negative (NEGATIVE) 10/06/16 19:30 Ur Barbiturates Screen Negative (NEGATIVE) 10/06/16 19:30 Ur Phencyclidine Scrn Negative (NEGATIVE) 10/06/16 19:30 Ur Amphetamines Screen Negative (NEGATIVE) 10/06/16 19:30 U Benzodiazepines Scrn Negative (NEGATIVE) 10/06/16 19:30 U Oth Cocaine Metabols Negative (NEGATIVE) 10/06/16 19:30 U Cannabinoids Screen Negative (NEGATIVE) 10/06/16 19:30 Blood Type O POSITIVE 10/05/16 11:00 Blood Type Confirm O POSITIVE 10/05/16 11:40 Antibody Screen Negative 10/05/16 11:00 BBK History Checked No verified bt 10/05/16 11:00 - Hospital Course Hospital Course: Mr. Waldrop is a 66 year old man with PMH of HTN and Dyslipidemia, medication non -compliance who was found down and was unresponsive on 10/05/16. Patient was initially unresponsive with a SBP in the 190's, but later began following commands and moving all extremities. Neurology was consulted and Brain Imaging was ordered. As per neuro patient was started on Plavix 75 mg in addition to his 81mg daily Aspirin for 21 days based on his MRI findings shown below. Patient was originally scheduled to be discharged on 10/07 but was not cleared by PT due to abnormal gait. On 10/08, the patient went into SVT which was converted into sinus tachycardia by Adenosine. Patients vitals are now stable. Lopressor 50mg po BID was added to his outpatient medication Medications reviewed with Polish Speaking hospice case manager and patient at bedside. Patient agrees with plan ; and will follow up with [facility] Outpatient in 1 week. Studies for this visit are as follows: MRI: several small punctate infarcts in both hemispheres located in watershed regions. Significant T2 hyperintesities consistent with chronic ischemic changes. Head CT: No Acute Changes Neck CT: 50% stenosis of internal Carotid Echo: EF - 60% - No obvious source of embolism Discharge Exam - Head Exam Head Exam: ATRAUMATIC, NORMOCEPHALIC - Eye Exam Eye Exam: EOMI - ENT Exam ENT Exam: Mucous Membranes Moist - Respiratory Exam Respiratory Exam: Clear to PA & Lateral. absent: Rales, Rhonchi, Wheezes, Respiratory Distress - Cardiovascular Exam Cardiovascular Exam: RRR, +S1, +S2. absent: Diastolic murmur, +S4, Systolic Murmur - GI/Abdominal Exam GI & Abdominal Exam: Normal Bowel Sounds, Soft. absent: Distended - Extremities Exam Additional comments: No edema - Neurological Exam Neurological exam: Abnormal Gait, Alert, Oriented x3 - Psychiatric Exam Psychiatric exam: Normal Affect, Normal Mood - Skin Skin Exam: Intact Discharge Plan - Discharge Medications Prescriptions: Metoprolol Tartrate [Lopressor] 50 mg PO BID #60 tab - Follow Up Plan Condition: GOOD Disposition: HOME/ ROUTINE Patient education suggested?: Yes Instructions: Ischemic Stroke (DC), Stroke (DC) Additional Instructions: 1. Take each medication daily. 2. Follow up with [facility] Clinic in 1 week. 3. Recommend patient have outpatient stress test. Referrals: [facility] at [facility] [Outside] <Myriam Perez - Last Filed: 10/09/16 16:46> Provider - Provider Date of Admission: 10/07/16 14:29 Attending physician: Myriam ePrez MD Hospital Course - Lab Results Lab Results: Most Recent Lab Values WBC 6.7 10^3/ul (4.5-11.0) 10/09/16 05:30 RBC 5.53 10^6/uL (3.5-6.1) 10/09/16 05:30 Hgb 16.4 gm/dL (14.0-18.0) 10/09/16 05:30 Hct 46.6 % (42.0-52.0) 10/09/16 05:30 MCV 84.3 fL (80.0-105.0) 10/09/16 05:30 MCH 29.7 pg (25.0-35.0) 10/09/16 05:30 MCHC 35.2 g/dl (31.0-37.0) 10/09/16 05:30 RDW 14.5 % (11.5-14.5) 10/09/16 05:30 Plt Count 140 10^3/uL (120.0-450.0) 10/09/16 05:30 MPV 9.9 fl (7.0-11.0) 10/09/16 05:30 Gran % 72.5 % (50.0-68.0) H 10/07/16 07:15 Lymph % (Auto) 15.3 % (22.0-35.0) L 10/07/16 07:15 Navarro % (Auto) 10.9 % (1.0-6.0) H 10/07/16 07:15 Eos % (Auto) 1.1 % (1.5-5.0) L 10/07/16 07:15 Baso % (Auto) 0.2 % (0.0-3.0) 10/07/16 07:15 Gran # 4.61 (1.4-6.5) 10/07/16 07:15 Lymph # 1.0 (1.2-3.4) L 10/07/16 07:15 Navarro # 0.7 (0.1-0.6) H 10/07/16 07:15 Eos # 0.1 (0.0-0.7) 10/07/16 07:15 Baso # 0.01 K/mm3 (0.0-2.0) 10/07/16 07:15 PT 11.8 Seconds (9.9-11.8) 10/05/16 10:45 INR 1.09 (0.93-1.08) H 10/05/16 10:45 APTT 23.6 Seconds (23.7-30.8) L 10/05/16 10:45 Sodium 136 mmol/L (132-148) 10/09/16 05:30 Potassium 4.3 mmol/L (3.6-5.0) 10/09/16 05:30 Chloride 102 mmol/L (98-107) 10/09/16 05:30 Carbon Dioxide 24 mmol/L (21-33) 10/09/16 05:30 Anion Gap 14 (10-20) 10/09/16 05:30 BUN 20 mg/dL (7-21) 10/09/16 05:30 Creatinine 1.1 mg/dL (0.5-1.4) 10/09/16 05:30 Est GFR ( Amer) > 60 10/09/16 05:30 Est GFR (Non-Af Amer) > 60 10/09/16 05:30 POC Glucose (mg/dL) 119 mg/dL (65-110) H 10/09/16 11:49 Random Glucose 82 mg/dL (70-110) 10/09/16 05:30 Hemoglobin A1c 5.4 % (4.2-6.5) 10/05/16 10:45 Calcium 9.2 mg/dL (8.4-10.5) 10/09/16 05:30 Phosphorus 3.7 mg/dL (2.5-4.5) 10/07/16 07:15 Magnesium 1.9 mg/dL (1.7-2.2) 10/09/16 05:30 Total Bilirubin 1.4 mg/dL (0.2-1.3) H 10/09/16 05:30 AST 48 U/L (15-59) 10/09/16 05:30 ALT 44 U/L (7-56) 10/09/16 05:30 Alkaline Phosphatase 67 U/L (38-133) 10/09/16 05:30 Troponin I < 0.01 ng/mL 10/05/16 11:00 Total Protein 8.0 g/dL (5.8-8.3) 10/09/16 05:30 Albumin 4.1 g/dL (3.0-4.8) 10/09/16 05:30 Globulin 3.8 gm/dL 10/09/16 05:30 Albumin/Globulin Ratio 1.1 (1.1-1.8) 10/09/16 05:30 Triglycerides 146 mg/dL (35-160) 10/05/16 11:00 Cholesterol 242 mg/dL (130-200) H 10/05/16 11:00 LDL Cholesterol Direct 169 mg/dL (0-129) H 10/05/16 11:00 HDL Cholesterol 54 mg/dL (29-60) 10/05/16 11:00 TSH 3rd Generation 3.21 mIU/mL (0.46-4.68) 10/09/16 05:30 Urine Opiates Screen Positive (NEGATIVE) H 10/06/16 19:30 Urine Methadone Screen Negative (NEGATIVE) 10/06/16 19:30 Ur Barbiturates Screen Negative (NEGATIVE) 10/06/16 19:30 Ur Phencyclidine Scrn Negative (NEGATIVE) 10/06/16 19:30 Ur Amphetamines Screen Negative (NEGATIVE) 10/06/16 19:30 U Benzodiazepines Scrn Negative (NEGATIVE) 10/06/16 19:30 U Oth Cocaine Metabols Negative (NEGATIVE) 10/06/16 19:30 U Cannabinoids Screen Negative (NEGATIVE) 10/06/16 19:30 Blood Type O POSITIVE 10/05/16 11:00 Blood Type Confirm O POSITIVE 10/05/16 11:40 Antibody Screen Negative 10/05/16 11:00 BBK History Checked No verified bt 10/05/16 11:00 Attending/Attestation - Attestation I have personally seen and examined this patient.: Yes I have fully participated in the care of the patient.: Yes I have reviewed all pertinent clinical information, including history, physical exam and plan: Yes Notes (Text): I have seen and examined the patient at bedside. Agree with the note dictated above with the following additions/ exceptions: Briefly this is 66 year old male with history of hypertension, dyslipidemia, h/o CVA, chronic smoking, non compliance with medications, alcohol abuse who was admitted for evaluation of syncope which was most likely due to ischemic stroke. CT head was normal however MRI brain revealed punctate infarcts in both hemispheres located in watershed region. He was started on aspirin, plavix, lisinopril, metoprolol and lipitor.Tobacco and alcohol cessation counselling provided. Outpatient stress test recommended in 6-8 weeks. PT cleared the patient to go home on a walker. Upon discharge patient will follow up in [facility] clinic. Dr Myriam Perez
[2016-10-09 14:10] VITALS: PULSE 75
== END 2016-10-09 15:57 | disposition home or self-care (01) | DRG 14 ==
LOC: ED 10:38 → ERH 13:50 → 2RNO 19:15 → OBSVTOIN 10-07 14:29
PROVIDERS: ADMIT Internal Medicine; ATTEND Hospitalist
DX: I63.9 Cerebral infarction, unspecified (principal); I47.1 Supraventricular tachycardia; I10 Essential (primary) hypertension; E78.5 Hyperlipidemia, unspecified; Z87.891 Personal history of nicotine dependence; E11.9 Type 2 diabetes mellitus without complications; R47.01 Aphasia